=== PATIENT | female | born 1970 | race American Indian/Alaskan Native ===

== ENCOUNTER 2018-03-09 01:28 | Emergency (ER) | payer OTHER ==
[2018-03-09 02:25] VITALS: BP 162/79
[2018-03-09 02:56] LABS: Basophils # (Auto) 0.1 K/mm3 (0.0-0.1); Eosinophils # (Auto) 0.1 K/mm3 (0.0-0.4); Eosinophils % (Auto) 1.1 % (0.0-4.3); Hematocrit 38.9 % (30.3-42.9); Hemoglobin 13.1 gm/dl (10.1-14.3); Lymphocytes # (Auto) 2.3 K/mm3 (1.2-5.4); Lymphocytes % (Auto) 39.5 % (13.4-35.0); Mean Corpuscular HGB Conc 34 % (30-34); Mean Corpuscular Hemoglobin 30 pg (28-32); Mean Corpuscular Volume 89 fl (79-97); Monocytes # (Auto) 0.4 K/mm3 (0.0-0.8); Monocytes % (Auto) 6.4 % (0.0-7.3); Platelet Count 194 K/mm3 (140-440); Red Blood Count 4.37 M/mm3 (3.65-5.03); Red Cell Distribution Width 15.1 % (13.2-15.2)
[2018-03-09 03:15] LABS: Alanine Aminotransferase 10 units/L (7-56); Albumin 4.5 g/dL (3.9-5); BUN/Creatinine Ratio 20; Blood Urea Nitrogen 14 mg/dL (7-17); Calcium 8.7 mg/dL (8.4-10.2); Hemolysis Index 2; Lipase 40 units/L (13-60)
[2018-03-09 05:06] LABS: Amorphous Crystals,Urine Few; Bilirubin,Urine NEG (Negative); Blood,Urine NEG (Negative); Color,Urine Yellow (Yellow); Mucus,Urine FEW /HPF; Protein,Urine <15 mg/dL mg/dL (Negative); Urobilinogen,Urine < 2.0 mg/dL (<2.0)
[2018-03-09] MEDS ORDERED: K-DUR PO ONE (07:55)
[2018-03-09] MEDS ORDERED: TYLENOL PO ONE (08:01)
--- NOTE | 2018-03-09 08:01 | Emergency Department Report ---
ED Upper Extremity Inj HPI - General Chief Complaint: Extremity Injury, Upper Stated Complaint: BLOOD IN STOOL; RT ARM PAIN Time Seen by Provider: 03/09/18 07:32 Source: patient Mode of arrival: Ambulatory Limitations: No Limitations - History of Present Illness Initial Comments: This is a 47-year-old female nontoxic, well nourished in appearance, no acute signs of distress presents to the ED with c/o of with 2 different complaints. Patient stated yesterday she had episode of blood in her stool on 3 occasions but stated today has resolved. Patient describe the blood in stool as bright red mixed with hard stool. Patient denies any abdominal pain. Patient denies any recent travels. Patient is also complaining of right forearm pain x1 month. Patient stated that she currently works as a hairstylist and moves the extremity. Patient denies any trauma to the area. Patient denies any joint redness, joint swelling, fever, chills, nausea, vomiting, chest pain or shortness breath. Patient denies abnormal or decreased gait. Patient denies any allergies. Past medical history includes diabetes and hypertension. MD Complaint: Injury to:: right, forearm -: month(s) (1) Other Extremity Injury: Forearm: Right Other Injuries: none Place: work Severity scale (0 -10): 8 Improves With: immobilization Worsens With: movement of extremity Associated Symptoms: denies other symptoms. denies: weakness, numbness, neck pain, suspects foreign body, nausea/vomiting, heard/felt popping sensat - Related Data Previous Rx's Medication Instructions Recorded Last Taken Type Acetaminophen 500 mg PO Q8H PRN #30 tablet 03/09/18 Unknown Rx Cyclobenzaprine [Flexeril] 10 mg PO BID PRN #10 tablet 03/09/18 Unknown Rx Allergies Allergy/AdvReac Type Severity Reaction Status Date / Time No Known Allergies Allergy Unverified 03/09/18 02:25 ED Review of Systems ROS: Stated complaint: BLOOD IN STOOL; RT ARM PAIN Other details as noted in HPI Constitutional: denies: chills, fever Eyes: denies: eye pain, eye discharge, vision change ENT: denies: ear pain, throat pain Respiratory: denies: cough, shortness of breath, wheezing Cardiovascular: denies: chest pain, palpitations Endocrine: no symptoms reported Gastrointestinal: denies: abdominal pain, nausea, diarrhea Genitourinary: denies: urgency, dysuria, discharge Musculoskeletal: arthralgia. denies: back pain, joint swelling Skin: denies: rash, lesions Neurological: denies: headache, weakness, paresthesias Psychiatric: denies: anxiety, depression Hematological/Lymphatic: denies: easy bleeding, easy bruising ED Past Medical Hx - Past Medical History Previous Medical History?: Yes Hx Hypertension: Yes Hx Diabetes: Yes - Surgical History Past Surgical History?: Yes Additional Surgical History: c sections, appy - Social History Smoking Status: Never Smoker Substance Use Type: None - Medications Home Medications: Home Medications Medication Instructions Recorded Confirmed Last Taken Type Acetaminophen 500 mg PO Q8H PRN #30 tablet 03/09/18 Unknown Rx Cyclobenzaprine [Flexeril] 10 mg PO BID PRN #10 tablet 03/09/18 Unknown Rx ED Physical Exam - General Limitations: No Limitations General appearance: alert, in no apparent distress - Head Head exam: Present: atraumatic, normocephalic - Eye Eye exam: Present: normal appearance, PERRL, EOMI Pupils: Present: normal accommodation - ENT ENT exam: Present: normal exam, mucous membranes moist - Neck Neck exam: Present: normal inspection, full ROM. Absent: tenderness, meningismus, lymphadenopathy - Respiratory Respiratory exam: Present: normal lung sounds bilaterally. Absent: respiratory distress, wheezes, rales, rhonchi, stridor, chest wall tenderness, accessory muscle use, decreased breath sounds, prolonged expiratory - Cardiovascular Cardiovascular Exam: Present: regular rate, normal rhythm, normal heart sounds. Absent: irregular rhythm, systolic murmur, diastolic murmur, rubs, gallop - GI/Abdominal GI/Abdominal exam: Present: soft, normal bowel sounds. Absent: distended, tenderness, guarding, rebound, rigid, diminished bowel sounds - Rectal Rectal exam: Present: deferred - Extremities Exam Extremities exam: Present: normal inspection, full ROM, tenderness, normal capillary refill. Absent: joint swelling - Expanded Upper Extremity Exam Right General: Present: normal inspection Shoulder Exam: Present: normal inspection, full ROM. Absent: tenderness, swelling Upper Arm exam: Present: normal inspection, full ROM. Absent: tenderness, swelling Elbow exam: Present: normal inspection, full ROM. Absent: tenderness, swelling , abrasion, laceration, ecchymosis, deformity, crepidus, dislocation, erythema, effusion, pain w/ pronation/supination, tenderness over radial head Forearm Wrist exam: Present: normal inspection, full ROM, tenderness. Absent: swelling, abrasion, laceration, ecchymosis, deformity, crepidus, dislocation, erythema, tenderness over anatomical snuff box, pain with axial thumb loading Hand Wrist exam: Present: normal inspection, full ROM. Absent: tenderness, swelling, abrasion, laceration, ecchymosis, deformity, crepidus, dislocation, erythema, amputation, nail avulsion, subungual hematoma Neuro motor exam: Present: wrist extension intact, thumb opposition intact, thumb IP flexion intact, thumb adduction intact, fingers 2-5 abduction intact Neurosensory exam: Present: 2-point discrimination, radial nerve intact, ulnar nerve intact, median nerve intact Vascular: Present: vascular compromise, normal capillary refill, radial pulse, brachial pulse, ulnar pulse - Back Exam Back exam: Present: normal inspection, full ROM. Absent: tenderness, CVA tenderness (R), CVA tenderness (L), muscle spasm, paraspinal tenderness, vertebral tenderness, rash noted - Neurological Exam Neurological exam: Present: alert, oriented X3, CN II-XII intact, normal gait - Psychiatric Psychiatric exam: Present: normal affect, normal mood - Skin Skin exam: Present: warm, dry, intact, normal color. Absent: rash ED Course Vital Signs 03/09/18 03/09/18 02:21 07:22 Temperature 98.2 F Pulse Rate 77 Respiratory 17 18 Rate Blood Pressure 162/79 O2 Sat by Pulse 99 99 Oximetry - Reevaluation(s) Reevaluation #1: 03/09/18 08:02 Patient is speaking in full sentences with no signs of distress noted. ED Medical Decision Making - Lab Data Result diagrams: 03/09/18 02:40 03/09/18 02:40 - Medical Decision Making This is a 47-year-old female that presents with right muscular elbow strain and blood in stool. Patient is stable and was examined by me. There was a negative fecal occult blood. Labs are unremarkable. Normal abdominal assessment. Patient stated that symptoms of blood in stool has subsided. I referred patient to GI SPECIALIST for possible colonoscopy. I also referred patient to an orthopedic doctor for further evaluation for possible MRI. X-ray has been obtained and dictated by the radiologist. Patient is notified of the x -ray report with noted by the patient. Patient does have normal gait with no tenderness and no joint swelling. No ecchymosis. no joint redness or swelling. Not warm to touch. No signs of cellulites present. Patient was instructed to RICE therapy. Patient received Tylenol for pain. Patient is discharged with Tylenol and Flexeril. Vital signs are stable. At time of discharge, the patient does not seem toxic or ill in appearance. No acute signs of distress noted. Patient agrees to discharge treatment plan of care. No further questions noted by the patient. Critical care attestation.: If time is entered above; I have spent that time in minutes in the direct care of this critically ill patient, excluding procedure time. ED Disposition Clinical Impression: Blood in stool Muscle strain of forearm Qualifiers: Encounter type: initial encounter Laterality: right Qualified Code(s): S56.911A - Strain of unspecified muscles, fascia and tendons at forearm level, right arm, initial encounter Disposition: TO HOME OR SELFCARE Is pt being admited?: No Does the pt Need Aspirin: No Condition: Stable Instructions: Muscle Strain (ED), RICE Therapy (ED), Cyclobenzaprine (By mouth) Additional Instructions: Follow-up with a primary care, orthopedic, and GI doctor doctor in 3-5 days or if symptoms worsen and continue return to emergency room as soon as possible. Take Tylenol and Flexeril as prescribed. Do not operate heavy machinery while taking Flexeril due to sedation You can also apply warm heat to the area during discomfort. Prescriptions: Acetaminophen 500 mg PO Q8H PRN #30 tablet PRN Reason: Pain Cyclobenzaprine [Flexeril] 10 mg PO BID PRN #10 tablet PRN Reason: Muscle Spasm Referrals: PRIMARY CAREMD [Primary Care Provider] - 3-5 Days MARYANNE RAI MD [Staff Physician] - 3-5 Days YOLANDA OSBORN MD [Staff Physician] - 3-5 Days [facility] [Provider Group] - 3-5 Days [facility] [Outside] - 3-5 Days Forms: Work/School Release Form(ED)
--- NOTE | 2018-03-09 08:34 | XRay Report ---
RIGHT FOREARM: History: Pain AP and lateral views of the forearm demonstrate normal mineralization and contours for this patient's age. No destructive changes are noted and the adjacent soft tissues are normal. IMPRESSION: Normal right forearm.
--- NOTE | 2018-03-09 08:35 | XRay Report ---
RIGHT ELBOW, 3 views: HISTORY: right elbow pain. The bony architecture is intact without evidence of fracture or dislocation. No significant soft tissue abnormality is seen. IMPRESSION: Normal right elbow.
== END 2018-03-09 09:00 | disposition home or self-care (01) ==
LOC: ED 01:28
DX: S56.911A Strain of unspecified muscles, fascia and tendons at forearm level, right arm, initial encounter (principal); K92.1 Melena; I10 Essential (primary) hypertension; E11.9 Type 2 diabetes mellitus without complications; X58.XXXA Exposure to other specified factors, initial encounter; Y93.89 Activity, other specified; Y99.0 Civilian activity done for income or pay; Y92.89 Other specified places as the place of occurrence of the external cause
CPT/HCPCS: 36415; 80053; 81001; 82271; 83690; 85025